=== PATIENT | male | born 1935 | race Caucasian/White ===

== ENCOUNTER 2020-05-17 04:35 | Inpatient (IN) | payer OTHER ==
[2020-05-16 11:52] VITALS: BMI 14.2
[2020-05-17] MEDS ORDERED: ROCURONIUM BROMIDE 50 MG/5 ML SYRINGE ONE (13:13)
[2020-05-17] MEDS ORDERED: PROPOFOL 20 ML ONE (13:13)
[2020-05-17] MEDS ORDERED: ceFAZolin 2 GRAM PREMIX BAG IVPB ONE (14:08)
[2020-05-17] MEDS ORDERED: ceFAZolin SODIUM 1 GM VIAL ONE (14:08)
[2020-05-17 14:35] LABS: POTASSIUM 4.7 mmol/L (3.5-5.1)
[2020-05-17 14:36] LABS: CALCIUM 8.6 mg/dL (8.5-10.1)
[2020-05-17 14:38] LABS: ALBUMIN 3.2 g/dl (3.4-5.0)
[2020-05-17 14:42] LABS: BILIRUBIN,TOTAL 0.5 mg/dL (0.2-1); TOT PROT 6.5 g/dl (6.4-8.2)
[2020-05-17 14:48] LABS: BLOOD UREA NITROGEN 25.4 mg/dL (7-18); CREATININE 0.9 mg/dL (0.55-1.3)
[2020-05-17] MEDS ORDERED: ONDANSETRON 4 MG/2 ML VIAL IVPUSH PRN (15:01)
[2020-05-17] MEDS ORDERED: oxyCODONE HCL 5 MG TABLET PO PRN (15:01)
[2020-05-17] MEDS ORDERED: NEOSTIGMINE METHYLSULFATE 0.5 MG/ML - 10 ML MDV ONE (15:06)
[2020-05-17] MEDS ORDERED: GLYCOPYRROLATE 0.2 MG/1 ML VIAL ONE (15:06)
[2020-05-17] MEDS ORDERED: LACTATED RINGERS SOLUTION 1,000 ML IV SCH (15:15)
[2020-05-17] MEDS ORDERED: HYDROmorphone HCl 2 MG/ML VIAL IVPB PRN (15:44)
[2020-05-17] MEDS: DEXTROSE 5%-0.45% SALINE 1,000 ML IV SCH (17:32)
[2020-05-17] MEDS: DRONABINOL 5 MG CAPSULE PO SCH (18:45)
[2020-05-17] MEDS: ATORVASTATIN CA 40 MG TABLET (FP) PO SCH (22:36)
[2020-05-17] MEDS: DOCUSATE SODIUM 100 MG CAPSULE (FP) PO SCH (22:36)
[2020-05-17] MEDS: MIRTAZAPINE 15 MG TABLET (FP) PO SCH (22:37)
[2020-05-17] MEDS: BUDESONIDE/FORMETEROL FUMARATE 80/4.5 mcg INHALER IH SCH (22:40)
[2020-05-18] MEDS: BUDESONIDE/FORMETEROL FUMARATE 80/4.5 mcg INHALER IH SCH ×2 (10:01→22:17)
[2020-05-18] MEDS: ASCORBIC ACID 500 MG TABLET (FP) PO SCH (10:01)
[2020-05-18] MEDS: ASPIRIN 81 MG CHEWABLE TABLETS PO SCH (10:01)
[2020-05-18] MEDS: FAMOTIDINE 20 MG TABLET PO SCH (10:01)
[2020-05-18] MEDS: ENOXAPARIN NA (PORCINE) 40 MG/0.4 ML DISP.SYRIN SQ SCH (10:04)
[2020-05-18] MEDS: DRONABINOL 5 MG CAPSULE PO SCH ×3 (10:04→17:38)
[2020-05-18 10:45] LABS: HEMATOCRIT 29.3 % (35.4-49); HEMOGLOBIN 9.7 GM/dL (11.7-16.9); MCH 32.3 pg (25.7-33.7); MCHC 33.1 g/dl (32.0-35.9); MEAN CELL VOLUME 97.4 fl (80-96); PLATELET COUNT 217 K/MM3 (134-434); RBC 3.01 M/mm3 (4.00-5.60); RDW 14.8 % (11.9-15.9); WHITE BLOOD COUNT 7.2 K/mm3 (4.0-10.0)
[2020-05-18 11:16] LABS: POTASSIUM 4.3 mmol/L (3.5-5.1)
[2020-05-18 11:20] LABS: BLOOD UREA NITROGEN 17.6 mg/dL (7-18); CALCIUM 7.9 mg/dL (8.5-10.1)
[2020-05-18 11:25] LABS: CREATININE 0.7 mg/dL (0.55-1.3)
[2020-05-18] MEDS: DEXTROSE 5%-0.45% SALINE 1,000 ML IV SCH (14:44)
[2020-05-18] MEDS: DOCUSATE SODIUM 100 MG CAPSULE (FP) PO SCH (22:17)
[2020-05-18] MEDS: MIRTAZAPINE 15 MG TABLET (FP) PO SCH (22:17)
[2020-05-18] MEDS: ATORVASTATIN CA 40 MG TABLET (FP) PO SCH (22:17)
[2020-05-19] MEDS: DRONABINOL 5 MG CAPSULE PO SCH ×3 (08:52→17:57)
[2020-05-19] MEDS: ASPIRIN 81 MG CHEWABLE TABLETS PO SCH (09:23)
[2020-05-19] MEDS: ENOXAPARIN NA (PORCINE) 40 MG/0.4 ML DISP.SYRIN SQ SCH (09:23)
[2020-05-19] MEDS: FAMOTIDINE 20 MG TABLET PO SCH (09:24)
[2020-05-19] MEDS: ASCORBIC ACID 500 MG TABLET (FP) PO SCH (09:24)
[2020-05-19] MEDS: BUDESONIDE/FORMETEROL FUMARATE 80/4.5 mcg INHALER IH SCH ×2 (09:25→21:00)
[2020-05-19] MEDS: DEXTROSE 5%-0.45% SALINE 1,000 ML IV SCH (16:38)
[2020-05-19] MEDS: ATORVASTATIN CA 40 MG TABLET (FP) PO SCH (21:00)
[2020-05-19] MEDS: MIRTAZAPINE 15 MG TABLET (FP) PO SCH (21:00)
[2020-05-19] MEDS: DOCUSATE SODIUM 100 MG CAPSULE (FP) PO SCH (21:00)
[2020-05-20] MEDS ORDERED: HALOPERIDOL LACTATE 5 MG/ML IM ONE (04:00)
[2020-05-20] MEDS ORDERED: QUEtiapine FUMARATE 25 MG TABLET PO ONE (04:02)
[2020-05-20] MEDS: DRONABINOL 5 MG CAPSULE PO SCH ×3 (08:37→17:20)
[2020-05-20] MEDS: ASPIRIN 81 MG CHEWABLE TABLETS PO SCH (09:31)
[2020-05-20] MEDS: FAMOTIDINE 20 MG TABLET PO SCH (09:32)
[2020-05-20] MEDS: ASCORBIC ACID 500 MG TABLET (FP) PO SCH (09:32)
[2020-05-20] MEDS: ENOXAPARIN NA (PORCINE) 40 MG/0.4 ML DISP.SYRIN SQ SCH (09:32)
[2020-05-20] MEDS: BUDESONIDE/FORMETEROL FUMARATE 80/4.5 mcg INHALER IH SCH ×2 (09:33→21:57)
[2020-05-20 10:21] LABS: HEMATOCRIT 35.8 % (35.4-49); HEMOGLOBIN 11.9 GM/dL (11.7-16.9); MCH 32.3 pg (25.7-33.7); MCHC 33.3 g/dl (32.0-35.9); MEAN CELL VOLUME 96.9 fl (80-96); MEAN PLT VOLUME 8.2 fl (7.5-11.1); PLATELET COUNT 232 K/MM3 (134-434); RDW 14.5 % (11.9-15.9); WHITE BLOOD COUNT 9.1 K/mm3 (4.0-10.0)
[2020-05-20] MEDS: AMINO ACIDS/PROTEIN HYDROLYS 30 ML LIQUID.PKT PO SCH (17:20)
[2020-05-20] MEDS ORDERED: ACETAMINOPHEN 325 MG TABLET (FP) PO PRN (18:26)
[2020-05-20] MEDS: MIRTAZAPINE 15 MG TABLET (FP) PO SCH (21:55)
[2020-05-20] MEDS: ATORVASTATIN CA 40 MG TABLET (FP) PO SCH (21:55)
[2020-05-20] MEDS: DOCUSATE SODIUM 100 MG CAPSULE (FP) PO SCH (21:56)
[2020-05-20] MEDS: DEXTROSE 5%-0.45% SALINE 1,000 ML IV SCH (21:58)
[2020-05-21] MEDS: DRONABINOL 5 MG CAPSULE PO SCH ×3 (09:32→17:38)
[2020-05-21] MEDS: ASCORBIC ACID 500 MG TABLET (FP) PO SCH (09:32)
[2020-05-21] MEDS: ENOXAPARIN NA (PORCINE) 40 MG/0.4 ML DISP.SYRIN SQ SCH (09:32)
[2020-05-21] MEDS: AMINO ACIDS/PROTEIN HYDROLYS 30 ML LIQUID.PKT PO SCH ×2 (09:32→17:38)
[2020-05-21] MEDS: ASPIRIN 81 MG CHEWABLE TABLETS PO SCH (09:32)
[2020-05-21] MEDS: FAMOTIDINE 20 MG TABLET PO SCH (09:32)
[2020-05-21] MEDS: BUDESONIDE/FORMETEROL FUMARATE 80/4.5 mcg INHALER IH SCH ×2 (09:33→21:37)
[2020-05-21] MEDS: DEXTROSE 5%-0.45% SALINE 1,000 ML IV SCH ×3 (11:11→23:25)
[2020-05-21] MEDS: DOCUSATE SODIUM 100 MG CAPSULE (FP) PO SCH ×2 (21:35→21:48)
[2020-05-21] MEDS: ATORVASTATIN CA 40 MG TABLET (FP) PO SCH ×2 (21:36→21:48)
[2020-05-21] MEDS: MIRTAZAPINE 15 MG TABLET (FP) PO SCH ×2 (21:36→21:48)
[2020-05-22] MEDS: ASCORBIC ACID 500 MG TABLET (FP) PO SCH ×2 (09:54→11:06)
[2020-05-22] MEDS: DRONABINOL 5 MG CAPSULE PO SCH ×3 (09:54→11:07)
[2020-05-22] MEDS: ASPIRIN 81 MG CHEWABLE TABLETS PO SCH ×2 (09:54→11:06)
[2020-05-22] MEDS: FAMOTIDINE 20 MG TABLET PO SCH ×2 (09:54→11:06)
[2020-05-22] MEDS: AMINO ACIDS/PROTEIN HYDROLYS 30 ML LIQUID.PKT PO SCH ×2 (09:55→11:06)
[2020-05-22] MEDS: ENOXAPARIN NA (PORCINE) 40 MG/0.4 ML DISP.SYRIN SQ SCH (09:55)
[2020-05-22] MEDS: BUDESONIDE/FORMETEROL FUMARATE 80/4.5 mcg INHALER IH SCH (09:57)
[2020-05-22 13:00] VITALS: BP 136/88; PULSE 60; TEMP 98.3
== END 2020-05-22 16:36 | DRG 239 ==
LOC: J2C 04:35 → EDSTATUS 13:30 → J5WEST-2 18:31
PROVIDERS: ADMIT Surgery; ATTEND Surgery
PROC: 0Y6D0Z2 Detachment at Left Upper Leg, Mid, Open Approach (ICD-10-PCS; principal; 2020-05-17 13:30)
DX: I96 Gangrene, not elsewhere classified (principal); E43 Unspecified severe protein-calorie malnutrition; Z68.1 Body mass index [BMI] 19.9 or less, adult; I10 Essential (primary) hypertension; E78.5 Hyperlipidemia, unspecified; F03.90 Unspecified dementia, unspecified severity, without behavioral disturbance, psychotic disturbance, mood disturbance, and anxiety; K21.9 Gastro-esophageal reflux disease without esophagitis; Z74.01 Bed confinement status
CPT/HCPCS: 36415; 80048; 80053; 85027; 86850; 86900; 86901; 86922; 88307-TC; 88311-TC; 94760; C9803; U0003